=== PATIENT | male | born 1970 | race Caucasian/White ===

== ENCOUNTER → 2019-06-07 | Outpatient (CLI) | payer BC, OTHER ==
[~2019-06-07] MED LIST: ACETAMINOPHEN-1 EAC1 PO; ASPIR 8181 M1 PO; ASPIR 8181 MG PO; AUGMENTIN 875-1 EACH PO; BARACLUDE0.5 MG PO; CALCIUM 500 +1 EAC5 PO; CEFDINIR300 MG PO; CENTRUM SILVER1 EAC2 PO; DOXYCYCLINE 10100 MG PO; EFFIENT10 MG PO; FENOFIBRATE160 MG PO; FISH OIL 1,0001 EAC9 PO; IPRAT-ALBUT 0.5-3 ML INH; JANUMET; JANUMET 50-1,01 EACH PO; LANTUS100 UNIT/M SUBQ; LIPITOR40 MG PO; MICARDIS40 MG PO; MOBIC7.5 MG PO; MULTIVITAMINS PO; MUPIROCIN22 GM TOP; NEXIUM40 MG PO; NYAMYC15 GM TOP; OMEGA-31000 M1 PO; OXYCODONE HCL 55 MG PO; PHENERGAN 25 MG25 M1 PO; PREDNISONE 10 M10 MG PO; PRINIVIL; PROVENTIL IH; ROBAFEN AC ORA473 ML PO; SIMVASTATIN40 MG PO; SIMVASTATIN80 MG PO; SINGULAIR 10 MG10 M1 PO; TELMISARTAN80 MG PO; TOPROL XL25 MG PO; TRULICITY1.5 MG/0.5 SUBQ; ULTRAM 50MG TAB50 MG PO; VITAMIN D1000 UNI1; ZOFRAN 4 MG ORAL4 M1 DIS; ZPAK PO
== END ==
LOC: SJCVCIMAG 12:32
DX: R07.9 Chest pain, unspecified (principal); R06.00 Dyspnea, unspecified; I10 Essential (primary) hypertension; E78.5 Hyperlipidemia, unspecified; E11.9 Type 2 diabetes mellitus without complications

== ENCOUNTER 2019-06-11 07:52 | Observation (INO) | payer BC, OTHER | END 2019-06-12 10:05 | disposition home or self-care (01) | LOC: CATH 07:52 → 2N 12:18 | PROVIDERS: ADMIT Internal Medicine Cardiovascular Disease | DX: I25.110 Atherosclerotic heart disease of native coronary artery with unstable angina pectoris (principal); F17.200 Nicotine dependence, unspecified, uncomplicated; I10 Essential (primary) hypertension; E11.9 Type 2 diabetes mellitus without complications; E11.51 Type 2 diabetes mellitus with diabetic peripheral angiopathy without gangrene; E78.5 Hyperlipidemia, unspecified; G47.33 Obstructive sleep apnea (adult) (pediatric); E66.9 Obesity, unspecified; F14.10 Cocaine abuse, uncomplicated; Z79.4 Long term (current) use of insulin ==

== ENCOUNTER → 2019-12-31 | Outpatient (CLI) | payer BC, OTHER ==
[~2019-12-31] MED LIST changes: +LIDOCAINE VISC100 ML SWISH&SPIT; +LIDODERM1 EACH TRANSDERM; +NORCO 5-325 TA1 EAC1 PO; +XARELTO2.5 MG PO
== END ==
LOC: SJCVCIMAG 07:55
PROVIDERS: ATTEND Internal Medicine Cardiovascular Disease
DX: I07.1 Rheumatic tricuspid insufficiency (principal); I11.9 Hypertensive heart disease without heart failure; I25.10 Atherosclerotic heart disease of native coronary artery without angina pectoris; E11.9 Type 2 diabetes mellitus without complications; F17.200 Nicotine dependence, unspecified, uncomplicated